=== PATIENT | female | born 1995 | race African-American/Black ===

== ENCOUNTER 2020-02-15 19:06 | Emergency (ER) | payer OTHER ==
[~2020-02-15] VITALS: Ht 162.6 cm; Wt 56.7 kg
[2020-02-15 19:34] VITALS: BP 115/72
[2020-02-15 20:23] LABS: Basophils # (auto) 0 10 ^3/uL (0-0.2); Eosinophils # (auto) 0.1 10 ^3/uL (0-0.8); Nucleated Red Blood Cells % 0.1 %; White Blood Cell 4.2 10^3/uL (4.4-10.8)
[2020-02-15 20:24] LABS: Eosinophils % (auto) 1.9 % (0.0-7.0); Hemoglobin 12.2 g/dL (12.2-16.2); Lymphocytes # (auto) 1.5 10 ^3/uL (0.4-5.4); Lymphocytes % (auto) 35.9 % (10.0-50.0); Mean Corpuscular Hemoglobin 26.6 pg (28.0-32.0); Mean Corpuscular Volume 83.3 fL (80.0-100.0); Monocytes # (auto) 0.6 10 ^3/uL (0-1.3); Monocytes % (auto) 13.3 % (0.0-12.0); Neutrophils % (auto) 47.9 % (37.0-80.0); Platelet Count (auto) 257 10^3/uL (140-450); Red Blood Cells 4.57 10^6/uL (4.0-5.20); Red Cell Distribution Width 16.2 % (11.8-14.3)
[2020-02-15 20:26] LABS: Urine Bacteria FEW /hpf (None Seen); Urine Blood Negative /uL (Negative); Urine Mucus FEW (None Seen); Urine Specific Gravity 1.014 (1.001-1.035); Urine WBC 5 /hpf (0 - 5)
[2020-02-15 20:43] LABS: Albumin 3.7 g/dL (3.4-5.0); BUN/Creatinine Ratio 17.3; Calcium 8.6 mg/dL (8.5-10.1); Potassium 3.5 mmol/L (3.5-5.1)
[2020-02-15 20:46] LABS: Bilirubin, Total 0.5 mg/dL (0.2-1.0); Total Protein 7.4 g/dL (6.4-8.2)
[2020-02-15] MEDS ORDERED: MECLIZINE HCL 25 MG TAB PO ONE (22:15)
[2020-02-15] MEDS ORDERED: ONDANSETRON ODT 4 MG TAB PO ONE (22:15)
== END 2020-02-15 22:27 | disposition home or self-care (01) ==
LOC: ER 19:06
DX: R42 Dizziness and giddiness (principal); Z32.01 Encounter for pregnancy test, result positive
CPT/HCPCS: 36415; 80053; 81001; 81025; 84443; 84702; 85025; 99283; J8597; Q0162

== ENCOUNTER 2020-03-10 19:07 | Emergency (ER) | payer OTHER ==
[~2020-03-10] VITALS: Ht 162.6 cm; Wt 58.2 kg
[2020-03-10 19:26] VITALS: BP 138/96
[2020-03-10 20:25] LABS: Basophils # (auto) 0.1 10 ^3/uL (0-0.2); Basophils % (auto) 1.1 % (0.0-2.0); Eosinophils # (auto) 0.1 10 ^3/uL (0-0.8); Eosinophils % (auto) 2.2 % (0.0-7.0); Hematocrit 33.9 % (36.0-46.0); Hemoglobin 11.1 g/dL (12.2-16.2); Lymphocytes # (auto) 1.8 10 ^3/uL (0.4-5.4); Mean Corpuscular Hemoglobin 27.3 pg (28.0-32.0); Mean Corpuscular Hgb Conc. 32.8 g/dL (32.0-36.0); Mean Corpuscular Volume 83.1 fL (80.0-100.0); Monocytes # (auto) 0.4 10 ^3/uL (0-1.3); Monocytes % (auto) 7.6 % (0.0-12.0); Neutrophils # (auto) 2.7 10 ^3/uL (1.6-8.6); Neutrophils % (auto) 53.1 % (37.0-80.0); Nucleated Red Blood Cells % 0.1 %; Platelet Count (auto) 261 10^3/uL (140-450); Red Blood Cells 4.08 10^6/uL (4.0-5.20); Red Cell Distribution Width 17.2 % (11.8-14.3); White Blood Cell 5.1 10^3/uL (4.4-10.8)
[2020-03-10 20:27] LABS: Urine Bacteria NONE SEEN /hpf (None Seen); Urine Blood Negative /uL (Negative); Urine Mucus FEW (None Seen); Urine Specific Gravity 1.027 (1.001-1.035); Urine WBC 2 /hpf (0 - 5)
[2020-03-10 20:39] LABS: Albumin 3.5 g/dL (3.4-5.0); Calcium 7.8 mg/dL (8.5-10.1); Potassium 3.6 mmol/L (3.5-5.1)
[2020-03-10 20:42] LABS: BUN/Creatinine Ratio 14.1; Bilirubin, Total 0.2 mg/dL (0.2-1.0); Total Protein 6.4 g/dL (6.4-8.2)
== END 2020-03-10 23:17 | disposition home or self-care (01) ==
LOC: ER 19:07
DX: N39.0 Urinary tract infection, site not specified (principal); D64.9 Anemia, unspecified; R45.1 Restlessness and agitation; E78.5 Hyperlipidemia, unspecified; I10 Essential (primary) hypertension; F17.210 Nicotine dependence, cigarettes, uncomplicated
CPT/HCPCS: 36415; 76856; 80053; 81001; 84702; 85025

== ENCOUNTER 2020-05-14 05:07 | Emergency (ER) | payer OTHER ==
[~2020-05-14] VITALS: Ht 162.6 cm; Wt 56.7 kg
[2020-05-14 05:15] VITALS: BP 118/82
[2020-05-14 05:42] LABS: Urine Bacteria NONE SEEN /hpf (None Seen); Urine Blood 3+ /uL (Negative); Urine Mucus FEW (None Seen); Urine WBC 3040 /hpf (0 - 5); Urine WBC Clumps PRESENT /hpf (None Seen)
[2020-05-14 05:54] LABS: Urine Specific Gravity 1.024 (1.001-1.035)
[2020-05-14] MEDS ORDERED: cefTRIAXone SOD 1,000 MG VL IM ONE (06:45)
[2020-05-14] MEDS ORDERED: PHENAZOPYRIDINE HCL 100 MG TAB PO ONE (07:00)
== END 2020-05-14 07:18 | disposition home or self-care (01) ==
LOC: ER 05:07
DX: N39.0 Urinary tract infection, site not specified (principal); F17.210 Nicotine dependence, cigarettes, uncomplicated; E78.5 Hyperlipidemia, unspecified; I10 Essential (primary) hypertension; Z32.02 Encounter for pregnancy test, result negative
CPT/HCPCS: 81001; 81025; 96372; 99283; J0696

== ENCOUNTER 2020-06-11 11:44 | Emergency (ER) | payer OTHER ==
[~2020-06-11] VITALS: Ht 162.6 cm; Wt 54.4 kg
[2020-06-11 11:55] VITALS: BP 122/75
[2020-06-11 12:46] LABS: Urine Bacteria NONE SEEN /hpf (None Seen); Urine Blood Negative /uL (Negative); Urine Mucus FEW (None Seen); Urine Specific Gravity 1.028 (1.001-1.035); Urine WBC 1 /hpf (0 - 5)
[2020-06-11 14:00] LABS: Basophils # (auto) 0 10 ^3/uL (0-0.2); Basophils % (auto) 1.3 % (0.0-2.0); Eosinophils # (auto) 0 10 ^3/uL (0-0.8); Eosinophils % (auto) 0.7 % (0.0-7.0); Hematocrit 38.7 % (36.0-46.0); Hemoglobin 12.8 g/dL (12.2-16.2); Lymphocytes % (auto) 33.7 % (10.0-50.0); Mean Corpuscular Hemoglobin 28.2 pg (28.0-32.0); Mean Corpuscular Hgb Conc. 32.9 g/dL (32.0-36.0); Mean Corpuscular Volume 85.5 fL (80.0-100.0); Monocytes # (auto) 0.3 10 ^3/uL (0-1.3); Monocytes % (auto) 10.9 % (0.0-12.0); Neutrophils # (auto) 1.7 10 ^3/uL (1.6-8.6); Neutrophils % (auto) 53.4 % (37.0-80.0); Nucleated Red Blood Cells % 0.1 %; Platelet Count (auto) 254 10^3/uL (140-450); Red Blood Cells 4.53 10^6/uL (4.0-5.20); Red Cell Distribution Width 14.8 % (11.8-14.3); White Blood Cell 3.1 10^3/uL (4.4-10.8)
[2020-06-11 14:15] LABS: Albumin 4.2 g/dL (3.4-5.0); Calcium 9.2 mg/dL (8.5-10.1); Potassium 4.2 mmol/L (3.5-5.1)
[2020-06-11 14:18] LABS: BUN/Creatinine Ratio 13.5; Bilirubin, Total 0.6 mg/dL (0.2-1.0); Total Protein 7.6 g/dL (6.4-8.2)
== END 2020-06-11 16:52 | disposition left against medical advice (07) ==
LOC: ER 11:44
DX: R10.32 Left lower quadrant pain (principal); Z32.02 Encounter for pregnancy test, result negative
CPT/HCPCS: 36415; 76856; 80053; 81001; 81025; 84702; 85025

== ENCOUNTER 2020-08-19 17:49 | Emergency (ER) | payer OTHER ==
[~2020-08-19] VITALS: Ht 165.1 cm; Wt 54.4 kg
[2020-08-19] MEDS ORDERED: SODIUM CHLORIDE 0.9% 1,000 ML IV ONE ×2 (18:45→21:00)
[2020-08-19] MEDS ORDERED: LORazepam 2MG/ML-1ML VIAL IV ONE (18:45)
[2020-08-19 19:00] LABS: Basophils # (auto) 0 10 ^3/uL (0-0.2); Basophils % (auto) 0.6 % (0.0-2.0); Eosinophils # (auto) 0.1 10 ^3/uL (0-0.8); Eosinophils % (auto) 1.5 % (0.0-7.0); Hematocrit 37.6 % (36.0-46.0); Hemoglobin 12.6 g/dL (12.2-16.2); Lymphocytes # (auto) 1.4 10 ^3/uL (0.4-5.4); Lymphocytes % (auto) 29.3 % (10.0-50.0); Mean Corpuscular Hemoglobin 28.9 pg (28.0-32.0); Mean Corpuscular Hgb Conc. 33.5 g/dL (32.0-36.0); Mean Corpuscular Volume 86.1 fL (80.0-100.0); Monocytes # (auto) 0.5 10 ^3/uL (0-1.3); Monocytes % (auto) 10.4 % (0.0-12.0); Neutrophils # (auto) 2.7 10 ^3/uL (1.6-8.6); Neutrophils % (auto) 58.2 % (37.0-80.0); Nucleated Red Blood Cells % 0.1 %; Platelet Count (auto) 270 10^3/uL (140-450); Red Blood Cells 4.37 10^6/uL (4.0-5.20); Red Cell Distribution Width 14.8 % (11.8-14.3); White Blood Cell 4.7 10^3/uL (4.4-10.8)
[2020-08-19] MEDS ORDERED: ALBUAER3 IN (19:05)
[2020-08-19 19:14] LABS: Albumin 3.9 g/dL (3.4-5.0); Calcium 8.2 mg/dL (8.5-10.1); Magnesium 1.7 mg/dL (1.6-2.6); Potassium 3.2 mmol/L (3.5-5.1)
[2020-08-19 19:17] LABS: BUN/Creatinine Ratio 18.9; Bilirubin, Total 0.3 mg/dL (0.2-1.0)
[2020-08-19 19:28] LABS: Urine Bacteria NONE SEEN /hpf (None Seen); Urine Blood Negative /uL (Negative); Urine Mucus FEW (None Seen); Urine Specific Gravity 1.034 (1.001-1.035); Urine WBC 1 /hpf (0 - 5)
[2020-08-19] MEDS ORDERED: POTASSIUM EFFERVESENT TAB 25 MEQ PO ONE (21:45)
[2020-08-19 22:00] VITALS: BP 102/44
== END 2020-08-19 22:33 | disposition home or self-care (01) ==
LOC: ER 17:49
DX: F41.9 Anxiety disorder, unspecified (principal); R45.1 Restlessness and agitation; F12.10 Cannabis abuse, uncomplicated; F17.210 Nicotine dependence, cigarettes, uncomplicated
CPT/HCPCS: 36415; 80053; 81001; 83735; 85025; 93005; 96361; 96374; 99285; J2060; J7030

== ENCOUNTER 2020-08-20 19:42 | Emergency (ER) | payer OTHER ==
[~2020-08-20] VITALS: Ht 165.1 cm; Wt 52.6 kg
[~2020-08-20 19:42] MED LIST: ALBUAER3 IN
[2020-08-20] MEDS ORDERED: ALPRAZolam 0.5 MG TAB PO ONE (22:15)
[2020-08-20 22:34] LABS: Alcohol, Urine < 3.0 mg/dL (0-10); Amphetamine Screen, Urine NEGATIVE (NEGATIVE); Barbiturate Scree,Urine NEGATIVE (NEGATIVE); Cannabinoid Screen, Urine POSITIVE (NEGATIVE); Cocaine Screen, Urine NEGATIVE (NEGATIVE); Opiate Scree,Urine NEGATIVE (NEGATIVE); Phencyclidine Screen, Urine NEGATIVE (NEGATIVE)
[2020-08-20 22:35] VITALS: BP 135/96
[2020-08-20 22:42] LABS: Benzodiazephine Screen, Urine NEGATIVE (NEGATIVE)
[2020-08-21 00:11] LABS: Basophils # (auto) 0.1 10 ^3/uL (0-0.2); Eosinophils # (auto) 0.1 10 ^3/uL (0-0.8); Eosinophils % (auto) 1.2 % (0.0-7.0); Hematocrit 38.4 % (36.0-46.0); Hemoglobin 12.5 g/dL (12.2-16.2); Lymphocytes # (auto) 1.3 10 ^3/uL (0.4-5.4); Lymphocytes % (auto) 25.2 % (10.0-50.0); Mean Corpuscular Hemoglobin 28.6 pg (28.0-32.0); Mean Corpuscular Hgb Conc. 32.6 g/dL (32.0-36.0); Mean Corpuscular Volume 87.9 fL (80.0-100.0); Monocytes # (auto) 0.6 10 ^3/uL (0-1.3); Monocytes % (auto) 12.5 % (0.0-12.0); Neutrophils % (auto) 60.1 % (37.0-80.0); Platelet Count (auto) 272 10^3/uL (140-450); Red Blood Cells 4.37 10^6/uL (4.0-5.20); Red Cell Distribution Width 15.2 % (11.8-14.3); White Blood Cell 5.1 10^3/uL (4.4-10.8)
[2020-08-21 00:40] LABS: Alanine Aminotransferase 19 U/L (13-56); Albumin 4.1 g/dL (3.4-5.0); Anion Gap 10 (5-15); Aspartate Aminotransferase 19 U/L (15-37); BUN/Creatinine Ratio 18.9; Blood Urea Nitrogen 17 mg/dL (7-18); Carbon Dioxide 21 mmol/L (21-32); Chloride 108 mmol/L (98-107); GFR African American 100 mL/min; GFR Non-African American 82 mL/min; Glucose 81 mg/dL (74-106); Potassium 3.6 mmol/L (3.5-5.1); Sodium 139 mmol/L (136-145)
[2020-08-21 00:45] LABS: Alkaline Phosphatase 66 U/L (45-117); Bilirubin, Total 0.4 mg/dL (0.2-1.0); Total Protein 8.1 g/dL (6.4-8.2)
== END 2020-08-21 02:28 | disposition home or self-care (01) ==
LOC: ER 19:43
DX: F41.1 Generalized anxiety disorder (principal); F17.210 Nicotine dependence, cigarettes, uncomplicated; F12.10 Cannabis abuse, uncomplicated
CPT/HCPCS: 36415; 80053; 80307; 83880; 84484; 85025; 93005

== ENCOUNTER 2021-05-21 11:00 | Emergency (ER) | payer OTHER ==
[~2021-05-21] VITALS: Ht 162.6 cm; Wt 53.2 kg
[2021-05-21 11:21] VITALS: BP 119/81
[2021-05-21 12:02] LABS: Urine WBC None Seen /hpf (0 - 5)
[2021-05-21 12:44] LABS: Urine Bacteria NONE SEEN /hpf (None Seen); Urine Blood 1+ /uL (Negative); Urine Mucus FEW (None Seen); Urine Specific Gravity 1.029 (1.001-1.035)
[2021-05-21] MEDS ORDERED: HYDROcodone-ACET 5/325MG TAB PO ONE (13:15)
[2021-05-21] MEDS ORDERED: KETOROLAC TROMETH 60MG/2ML VIAL IM ONE (13:15)
== END 2021-05-21 18:21 | disposition home or self-care (01) ==
LOC: ER 11:00
DX: S33.5XXA Sprain of ligaments of lumbar spine, initial encounter (principal); M79.10 Myalgia, unspecified site; I10 Essential (primary) hypertension; E78.5 Hyperlipidemia, unspecified; Z79.899 Other long term (current) drug therapy; X58.XXXA Exposure to other specified factors, initial encounter; Y93.89 Activity, other specified; Y92.89 Other specified places as the place of occurrence of the external cause; Y99.8 Other external cause status
CPT/HCPCS: 72100; 81001; 81025; 96372; 99284; J1885

== ENCOUNTER 2021-05-27 20:50 | Emergency (ER) | payer OTHER ==
[~2021-05-27] VITALS: Ht 162.6 cm; Wt 52.6 kg
[2021-05-27 21:30] LABS: Urine Bacteria NONE SEEN /hpf (None Seen); Urine Blood Negative /uL (Negative); Urine Mucus FEW (None Seen); Urine Specific Gravity 1.031 (1.001-1.035); Urine WBC 1 /hpf (0 - 5)
[2021-05-27 21:51] LABS: Basophils # (auto) 0 10 ^3/uL (0-0.2); Basophils % (auto) 1.1 % (0.0-2.0); Eosinophils # (auto) 0.1 10 ^3/uL (0-0.8); Eosinophils % (auto) 2.8 % (0.0-7.0); Hematocrit 39.4 % (36.0-46.0); Hemoglobin 12.7 g/dL (12.2-16.2); Lymphocytes # (auto) 1.6 10 ^3/uL (0.4-5.4); Lymphocytes % (auto) 51.9 % (10.0-50.0); Mean Corpuscular Hgb Conc. 32.4 g/dL (32.0-36.0); Mean Corpuscular Volume 86.6 fL (80.0-100.0); Monocytes # (auto) 0.3 10 ^3/uL (0-1.3); Monocytes % (auto) 10.5 % (0.0-12.0); Neutrophils # (auto) 1.1 10 ^3/uL (1.6-8.6); Neutrophils % (auto) 33.7 % (37.0-80.0); Nucleated Red Blood Cells % 0.1 %; Red Blood Cells 4.55 10^6/uL (4.0-5.20); Red Cell Distribution Width 14.2 % (11.8-14.3); White Blood Cell 3.1 10^3/uL (4.4-10.8)
[2021-05-27 22:14] LABS: Albumin 3.7 g/dL (3.4-5.0); BUN/Creatinine Ratio 21.6; Calcium 8.8 mg/dL (8.5-10.1); Potassium 4.1 mmol/L (3.5-5.1)
[2021-05-27 22:17] LABS: Bilirubin, Total 0.3 mg/dL (0.2-1.0); Total Protein 7.3 g/dL (6.4-8.2)
[2021-05-28 07:45] VITALS: BP 114/79
[2021-05-28] MEDS ORDERED: PROCHLORPERAZINE EDISYLATE 5 MG/ML 2ML VIAL IV ONE (08:00)
[2021-05-28] MEDS ORDERED: KETOROLAC TROMETH 30 MG/ML 1ML VIAL IV ONE (08:00)
[2021-05-28] MEDS ORDERED: diphenhdrAMINE HCL 50 MG/1 ML VL IV ONE (08:00)
[2021-05-28] MEDS ORDERED: SODIUM CHLORIDE 0.9% 1,000 ML IV ONE (08:00)
[2021-05-28 08:23] LABS: Alcohol, Urine < 3.0 mg/dL (0-10); Amphetamine Screen, Urine NEGATIVE (NEGATIVE); Barbiturate Scree,Urine NEGATIVE (NEGATIVE); Benzodiazephine Screen, Urine NEGATIVE (NEGATIVE); Cocaine Screen, Urine NEGATIVE (NEGATIVE); Opiate Scree,Urine NEGATIVE (NEGATIVE); Phencyclidine Screen, Urine NEGATIVE (NEGATIVE)
[2021-05-28 08:31] LABS: Cannabinoid Screen, Urine POSITIVE (NEGATIVE)
== END 2021-05-28 08:40 | disposition left against medical advice (07) ==
LOC: ER 20:53
DX: G43.909 Migraine, unspecified, not intractable, without status migrainosus (principal); E78.5 Hyperlipidemia, unspecified; I10 Essential (primary) hypertension
CPT/HCPCS: 36415; 70450; 80053; 80307; 81001; 85025